=== PATIENT | female | born 1985 | race Caucasian/White ===

== ENCOUNTER 2022-08-25 11:45 | Outpatient (CLI) | payer OTHER, SELFPAY ==
[2022-08-25 16:42] LABS: Hepatitis B Surface Antigen* Negative (Negative)
[2022-08-25 16:51] LABS: HIV 1/2/P24 Combo Screen* Negative (Negative)
[2022-08-25 17:00] LABS: Hepatitis C Virus Antibody* Negative (Negative)
[2022-08-27 23:57] LABS: Rapid Plasma Reagin (RPR) Non Reactive (Non Reactive)
[2022-08-28 03:29] LABS: Varicella-Zoster Virus Ab, IgG 490.2 IV
[2022-08-28 03:32] LABS: Rubella Antibody IgG 11.8 IU/mL
== END 2022-08-25 11:46 | disposition home or self-care (01) ==
PROVIDERS: Visit Provider Advanced Practice Midwife
DX: Z34.81 Encounter for supervision of other normal pregnancy, first trimester (principal); Z3A.08 8 weeks gestation of pregnancy
CPT/HCPCS: 86592; 86703; 86762; 86787; 86803; 86850; 86900; 86901; 87086; 87340

== ENCOUNTER 2022-11-10 09:33 | Outpatient (CLI) | payer OTHER, SELFPAY ==
--- NOTE | 2022-11-10 09:45 | CRLHL7_ITS ---
For Patients: As a result of the Century Cures Act, medical imaging exams and procedure reports are released immediately into your electronic medical record. You may view this report before your referring provider. If you have questions, please contact your health care provider. INDICATION: Evaluate anatomy. COMPARISON: none TECHNIQUE: Real time reeves scale imaging of the fetus was performed as well as color Doppler analysis of the umbilical vessels. FINDINGS: Sonographic imaging demonstrates a single living intrauterine gestation. Fetus demonstrates a regular cardiac rate of 142 beats per minute. Fetus has a transverse position, head maternal left. The placenta lies posteriorly. On transvaginal imaging, the placental tip is located 1 cm from the internal cervical os. Amniotic fluid volume appears normal. Single deepest vertical pocket: 6.0 cm. The cervix is closed and measures 4.3 cm in length. The composite ultrasound gestational age is calculated at 21 weeks 2 days with an estimated sonographic due date of 03/21/2023. The estimated weight is 411 grams which lies at the greater than 97 %. The following biometric measurements were obtained: Biparietal diameter: 5.0 cm/21 weeks 0 days 86th% Head circumference: 18.7 cm/21 weeks 0 days 84th% Abdominal circumference: 16.5 cm/21 weeks 4 days 89th% Femur length: 3.5 cm/21 weeks 0 days 76th% The HC/AC ratio measures: 1.13 range (1.06-1.24) On anatomic survey, there is a normal appearance of the cerebral ventricles, cavum septi pellucidi, cisterna magna and cerebellum. The nose, lips, and facial profile appear normal. The cervical, thoracic and lumbar spine are well visualized and appear normal. There is a normal four-chamber heart view and the left and right ventricular outflow tracts appear normal. The diaphragm and stomach appear normal. The kidneys and bladder also appear normal. There is a normal three-vessel cord and cord insertion site. The four extremities appear normal. IMPRESSION: Sonographic gestational age 21 weeks 2 days and sonographic due date of 03/21/2023. Sonographic age is 9 days ahead of the clinical age. Estimated weight greater than 97th percentile. Abdominal circumference 89th percentile. Low lying posterior placenta with the placental edge 1 cm from the internal cervical os. Anatomic survey normal. Dictated by Chong Hernandez MD @ 11/10/2022 11:27:42 AM (Electronically Signed)
== END 2022-11-10 09:34 | disposition home or self-care (01) ==
LOC: US 09:35
PROVIDERS: PCP Family Medicine; Visit Provider Advanced Practice Midwife
DX: Z34.92 Encounter for supervision of normal pregnancy, unspecified, second trimester (principal); O44.42 Low lying placenta NOS or without hemorrhage, second trimester; Z3A.21 21 weeks gestation of pregnancy
CPT/HCPCS: 76805; 76817

== ENCOUNTER 2023-01-05 08:31 | Outpatient (CLI) | payer OTHER, SELFPAY | END 2023-01-05 08:32 | disposition home or self-care (01) | LOC: NFLDREF 01-07 02:10 | PROVIDERS: PCP Family Medicine; Referring Provider Family Medicine; Visit Provider Obstetrics & Gynecology | DX: O44.40 Low lying placenta NOS or without hemorrhage, unspecified trimester (principal) | CPT/HCPCS: 86592; 86850 ==

== ENCOUNTER 2023-01-05 08:35 | Outpatient (CLI) | payer OTHER, SELFPAY ==
--- NOTE | 2023-01-05 08:45 | CRLHL7_ITS ---
For Patients: As a result of the Century Cures Act, medical imaging exams and procedure reports are released immediately into your electronic medical record. You may view this report before your referring provider. If you have questions, please contact your health care provider. INDICATION: LOW-LYING PLACENTA COMPARISON: 11/10/2022 TECHNIQUE: Real time reeves scale imaging of the fetus was performed with transabdominal and transvaginal technique. FINDINGS: Sonographic imaging demonstrates a single living intrauterine gestation. Fetus demonstrates a regular cardiac rate of 146 beats per minute. Fetus has a vertex. The placenta lies posteriorly without evidence of placenta previa. The edge of the placenta is located 5.0 cm from the internal cervical os with transvaginal technique. The cervix is closed and measures 3.9 cm. Amniotic fluid volume appears normal and there is a single deepest vertical pocket: 6.9 cm. DICKSON 18.3 cm. IMPRESSION: Posterior placenta is located 5 cm from the internal cervical os with transvaginal imaging. Dictated by Chong Hernandez MD @ 01/05/2023 11:15:38 AM (Electronically Signed)
== END 2023-01-05 08:36 | disposition home or self-care (01) ==
PROVIDERS: PCP Family Medicine; Visit Provider Advanced Practice Midwife
DX: O44.42 Low lying placenta NOS or without hemorrhage, second trimester (principal); O09.529 Supervision of elderly multigravida, unspecified trimester
CPT/HCPCS: 76816; 76817

== ENCOUNTER 2023-01-12 08:02 | Outpatient (CLI) | payer OTHER, SELFPAY | END 2023-01-12 08:03 | disposition home or self-care (01) | LOC: NFLDREF 01-14 04:09 | PROVIDERS: PCP Family Medicine; Referring Provider Family Medicine; Visit Provider Obstetrics & Gynecology | DX: R73.09 Other abnormal glucose (principal) | CPT/HCPCS: 82951; 82952 ==

== ENCOUNTER 2023-02-02 09:44 | Outpatient (CLI) | payer OTHER, SELFPAY ==
--- NOTE | 2023-02-02 09:45 | CRLHL7_ITS ---
For Patients: As a result of the Century Cures Act, medical imaging exams and procedure reports are released immediately into your electronic medical record. You may view this report before your referring provider. If you have questions, please contact your health care provider. INDICATION: Gestational diabetes TECHNIQUE: Real time reeves scale imaging of the fetus was performed. COMPARISON: 01/05/2023, 11/10/2022 FINDINGS: Sonographic imaging demonstrates a single living intrauterine gestation. Fetus demonstrates a regular cardiac rate of 157 beats per minute. Fetus has a vertex position. The placenta lies posteriorly. Amniotic fluid volume appears normal and there is a single deepest pocket of 5.4 cm. The estimated weight is 2265gm which lies at the 90th %. On the prior OB ultrasound dated 11/10/2022 the estimated weight was at the greater than 97th percentile. BPD 88th percentile. HC 75th percentile. AC 96th percentile. FL 52nd percentile. The fetus was active and demonstrated normal breathing movements. There was normal flexion and extension of the trunk and extremities. IMPRESSION: Normal biophysical profile score 8/8. Sonographic gestational age 33 weeks 5 days and sonographic due date of 03/18/2023. Sonographic age 12 days ahead of the clinical age. Estimated weight 90th percentile. Abdominal circumference 86th percentile. Dictated by Chong Hernandez MD @ 02/03/2023 8:48:27 AM (Electronically Signed)
== END 2023-02-02 09:45 | disposition home or self-care (01) ==
LOC: US 09:44
PROVIDERS: PCP Family Medicine; Visit Provider Obstetrics & Gynecology
DX: O24.419 Gestational diabetes mellitus in pregnancy, unspecified control (principal)
CPT/HCPCS: 76816; 76819

== ENCOUNTER 2023-02-09 07:15 | Outpatient (CLI) | payer OTHER, SELFPAY ==
--- NOTE | 2023-02-09 07:15 | CRLHL7_ITS ---
For Patients: As a result of the Century Cures Act, medical imaging exams and procedure reports are released immediately into your electronic medical record. You may view this report before your referring provider. If you have questions, please contact your health care provider. INDICATION: Gestational diabetes COMPARISON: 02/02/2023 TECHNIQUE: Real time reeves scale imaging of the fetus was performed. Without non-stress testing. FINDINGS: Sonographic imaging demonstrates a single living intrauterine gestation. Fetus demonstrates a regular cardiac rate of 137 beats per minute. Fetus has a vertex position. The amniotic fluid volume appears normal and there is a single deepest pocket measurement of 6.1 cm. The fetus was active. Absent breathing movements for 30 seconds. There was normal flexion and extension of the trunk and extremities. IMPRESSION: Biophysical profile 03/31. Dictated by Chong Hernandez MD @ 02/09/2023 12:56:56 PM (Electronically Signed)
== END 2023-02-09 07:16 | disposition home or self-care (01) ==
LOC: US 07:16
PROVIDERS: PCP Family Medicine; Visit Provider Obstetrics & Gynecology
DX: O24.419 Gestational diabetes mellitus in pregnancy, unspecified control (principal)
CPT/HCPCS: 76819

== ENCOUNTER 2023-02-16 09:37 | Outpatient (CLI) | payer OTHER, SELFPAY ==
--- NOTE | 2023-02-16 09:45 | CRLHL7_ITS ---
For Patients: As a result of the Century Cures Act, medical imaging exams and procedure reports are released immediately into your electronic medical record. You may view this report before your referring provider. If you have questions, please contact your health care provider. INDICATION: Gestational diabetes. Assess well-being. TECHNIQUE: Obstetrical ultrasound. COMPARISON: February 09, 2023. February 02, 2023. FINDINGS: Single living intrauterine in vertex presentation. Posterior and left-sided placenta. heart rate 141 beats per minute. Normal amniotic fluid. Single deepest pocket measurement 7.1 cm. Biophysical profile score 8/8 with 2 points given each for breathing, movement, tone, and amniotic fluid. When compared to February 09, 2023 the biophysical profile score was 6/8. When compared to February 02, 2023 the biophysical profile score is 8/8. IMPRESSION: Single living intrauterine in vertex presentation. Posterior and left-sided placenta. Biophysical profile score 8/8. Dictated by Marlo Richardson MD @ 02/16/2023 4:13:37 PM (Electronically Signed)
== END 2023-02-16 09:38 | disposition home or self-care (01) ==
LOC: US 09:37
PROVIDERS: PCP Family Medicine; Visit Provider Obstetrics & Gynecology
DX: O24.419 Gestational diabetes mellitus in pregnancy, unspecified control (principal)
CPT/HCPCS: 76819

== ENCOUNTER 2023-02-23 08:43 | Outpatient (CLI) | payer OTHER, SELFPAY ==
--- NOTE | 2023-02-23 08:45 | CRLHL7_ITS ---
For Patients: As a result of the Century Cures Act, medical imaging exams and procedure reports are released immediately into your electronic medical record. You may view this report before your referring provider. If you have questions, please contact your health care provider. INDICATION: Gestational diabetes COMPARISON: 02/16/2023 TECHNIQUE: Real time reeves scale imaging of the fetus was performed. Without non-stress testing. FINDINGS: Sonographic imaging demonstrates a single living intrauterine gestation. Fetus demonstrates a regular cardiac rate of 139 beats per minute. Fetus has a vertex position. The amniotic fluid volume appears normal and there is a single deepest pocket measurement of 4.5 cm. The fetus was active and demonstrated normal breathing movements. There was normal flexion and extension of the trunk and extremities. IMPRESSION: Normal biophysical profile score of 8 out of 8. Dictated by Chong Hernandez MD @ 02/23/2023 9:57:07 AM (Electronically Signed)
== END 2023-02-23 08:44 | disposition home or self-care (01) ==
LOC: US 08:43
PROVIDERS: PCP Family Medicine; Visit Provider Obstetrics & Gynecology
DX: O24.419 Gestational diabetes mellitus in pregnancy, unspecified control (principal)
CPT/HCPCS: 76819

== ENCOUNTER 2023-03-24 05:29 | Inpatient (IN) | payer OTHER, SELFPAY ==
[2023-03-24] VITALS (34 sets, daily range): BP systolic 93–129; BP diastolic 53–83; PULSE 62–84; RESP 16–18; TEMP 36.4–36.9; O2SAT 94–99; BMI 37.8
--- NOTE | 2023-03-24 07:24 | W.PM.LDBA ---
Subjective History of Present Illness Time Seen by Provider: 07:24 Date Seen: 03/24/23 Narrative: Patient is being admitted to Labor and Delivery for schedule repeat CD. She is a 37 year old at 39w1d gestation. Her full history and physical was dictated myself on 03/09. Please see this for details. Active movement. Some contractions. No LOF, vaginal bleeding or abnormal vaginal discharge. OB - Problem Based A/P Additional Plan (1) AMA (advanced maternal age) multigravida 35+: Status: Acute (2) Obesity affecting : Status: Acute (3) Anxiety and depression: Status: Acute (4) Encounter for supervision of other normal , third trimester: Status: Acute (5) Gestational diabetes: Status: Acute Plan - Will proceed with planned repeat delivery and bilateral salpingectomy OB Exam Physical Exam Vital signs: Temp Pulse BP 98.5 F 74 124/66 03/24/23 06:13 03/24/23 06:10 03/24/23 06:10 Narrative: Physical exam: General: No acute distress Psych: Alert and oriented x3, full affect HEENT: Normocephalic, atraumatic Lungs: Unlabored breathing Neuro: No focal deficit. Mentating appropriately Abdomen: Gravid uterus. No tenderness, guarding or rebound Pelvic exam: Deferred
--- NOTE | 2023-03-24 08:14 | W.ANESCHARGE ---
Anesthesia Charges Start Date/Time Anesthesia Start Date: 03/24/23 Anesthesia Start Time: 07:19 Stop Date/Time Anesthesia Stop Date: 03/24/23 Anesthesia Stop Time: 08:57
--- NOTE | 2023-03-24 08:36 | PM.OBPRCCS ---
Procedure Pre-op/Post-op diagnoses: Pre-Op/Post-Op Diagnoses Operation Date: 03/24/23 07:15 <No data on this case meets the specified criteria> Procedure Done: Global Procedure Details: Procedures Operation Date: 03/24/23 07:15 Actual Procedure Side Surgeon p Repeat Section, Tubal Ligation Evette Denson MD Narrative: DELIVERY BY SECTION Date of Service: 03/24/2023 Delivery time: 0756 Summary: Admitted for scheduled repeat delivery and bilateral salpingectomy at 39 weeks 1 day, repeat lower uterine transverse section, Pfannenstiel, Closed with sutures, QBL 537 cc, No complications, Findings: Filmy adhesions of omentum to anterior abdominal wall. Bladder adhesions high on uterus, normal bilateral ovaries and tubes 9,9 Weight 3572 g. Primary Indication: 1. Repeat delivery 2. Gestation diabetes mellitus A2 3. Undesired fertility Procedures: Repeat lower uterine transverse section Bilateral salpingectomy Specimens Removed: Placenta Bilateral fallopian tubes Surgeon: Evette Denson MD Anesthesia: Spinal Report: Prophylactic antibiotic, 2 g of Ancef was given before patient was taken to OR. After arrival to the operating room patient was placed in the supine position with left lateral tilt after administration of spinal anesthesia. Laparotomy A pfannenstiel incision was made through the anterior abdominal wall with #10 scalpel approximately 2 cm above the pubic symphysis. The incision was extended sharply with the #10 scalpel through the subcutaneous tissue to the level of fascia. The fascia was entered sharply with a #10 scalpel (Pfannenstiel) in the midline and extended in semi-elliptical fashion with Hood scissor. The underlying muscles were dissected off the overlying fascia by grasping the superior aspect of fascia with two talya clamps and blunt dissection was used along the midline. The fascia was further from rectus muscle with Hood scissor and/or cautery. In similar fashion, the lower aspect of fascia was also grasped with two Talya clamps and both blunt and sharp dissection was used to separate fascia from rectus muscle. The rectus muscles were in the midline bluntly with digits. The peritoneum was then entered sharply with Shayy and Metzenbaum is a. The peritoneal incision was then extended superiorly and inferiorly under direct visualization with care being taken to avoid bladder and bowel. Adhesion noted as above. The peritoneal incision was enlarged bluntly by lateral traction from the surgeon's and front office assistant's hand. Cory retractor was inserted into the abdomen. Delivery Lysis of adhesion of bladder of the lower uterine segment was performed and a bladder flap was developed by grasping with Scottish forcep and enter with Metzenbaun scissor. Then sharp and blunt dissection with Metzenbaum scissor and fingers were performed. A low transverse hysterotomy was made then with #10 scalpel and extended laterally and cephalad with fingers in a low transverse fashion with Manu Kohler technique with care being taken to avoid injury to the fetus. The amniotic cavity (membrane) was then entered with spontaneous rupture of membrane, and the amniotic fluid was noted to be clear, fetus was delivered cephalic. With delivery of the baby, no extension was noted. Placenta was delivered spontaneously with steady traction on cord and manual separation of placenta from uterine wall. Closure Uterine cavity was cleaned after placental delivery with lap sponge x 2. The hysterotomy was closed in one layer with stitches using 0 vicryl with continuous locking stitches. Hemostasis was achieved as needed with electrocautery. The ovaries/tubes/uterine surface were evaluated. Findings were noted as above. Attention was then turned to performing the bilateral salpingectomy. The right fallopian tube was grasped with two Babcocks and used for elevation and traction. Ligasure was used to perform the salpingectomy starting at the fimbria all the way to the isthmus where it was transected near the cornua. This was repeated for the left fallopian tube. Cory retractor removed and hemostasis was confirmed again. Fascia was closed with running stitches using 0 PDS. Hemostasis was checked for and found to be adequate. The subcutaneous layer was closed with running plain gut sutures. The skin was closed with monocryl subcuticular sutures. The incision was cleaned and covered with a Exofin and Mepilex dressing and the procedure considered terminate at this time. Intraoperative Complications: None QBL: 537 cc Uterotonics: 40 units of Pitocin Disposition: The patient tolerated the procedure well. She was recovered in obstetric PACU for close monitoring in stable condition, with a contracted uterus and normal transvaginal bleeding. The infant was sent to mother?s bedside/PACU. A segment of the cord was obtained for umbilical cord gases. Fallopian tube was sent to the pathology. The placenta was not sent to pathology.
--- NOTE | 2023-03-24 08:58 | W.PM.NB ---
Nerve Block Nerve Block Time Seen by Provider: 08:47 Date Seen: 03/24/23 Type of block requested by surgeon for post-operative analgesia: TAP Side: bilateral Time out performed: Yes Verification of patient name: Yes Verification of date of : Yes Site marking: site marked Name of person performing procedure: Lc Continuous monitoring Was continuous monitoring of O2 sat, B/P, quality assurance monitor, recorded every 15 minutes?: Yes Procedure Checklist: sterile prep, needles and gloves Ultrasound guided. Images saved: Yes Medications given in 5ml increments after negative aspiration: Marcaine %: 0.25 mL: 30 Needle gauge: 20 and Exparel mL: 10 Patient tolerated procedure well: Yes Additional comments: Needle noted adjacent to nerve Block Charges Block Charge (with Pro Fee): TAP Bilateral Use of Ultrasound Machine for Block: Yes- US Guidance/pain block
--- NOTE | 2023-03-24 09:09 | W.ANESCHARGE ---
Anesthesia Charges Start Date/Time Anesthesia Start Date: 03/24/23 Anesthesia Start Time: 07:19 Stop Date/Time Anesthesia Stop Date: 03/24/23 Anesthesia Stop Time: 08:57
[2023-03-24] MEDS: KETOROLAC 30 MG/ML inj IVP ×3 (09:10→21:11)
[2023-03-24] MEDS: LACTATED RINGERS 1000 ML 1,000 ML 125 ML IV (10:56)
[2023-03-24] MEDS: ENOXAPARIN 40 MG/0.4 ML INJ SUBCUT (19:44)
[2023-03-25] VITALS (11 sets, daily range): BP systolic 116–134; BP diastolic 71–76; PULSE 62–70; RESP 16; TEMP 36.5–36.8; O2SAT 96–100
[2023-03-25] MEDS: SODIUM CHLORIDE 0.9 % (FLUSH) 10 ML SYRINGE IVF (03:03)
[2023-03-25] MEDS: KETOROLAC 30 MG/ML inj IVP ×3 (03:03→15:06)
[2023-03-25 06:52] LABS: Hemoglobin* 11.3 gm/dL (12.0-16.0)
--- NOTE | 2023-03-25 07:05 | PM.OBPNCS1 ---
OB - PN: A/P Assessment and Plan (1) AMA (advanced maternal age) multigravida 35+: Status: Acute (2) Obesity affecting : Status: Acute (3) Anxiety and depression: Status: Acute (4) Encounter for supervision of other normal , third trimester: Status: Acute (5) Gestational diabetes: Status: Acute Plan Plan: routine postop care Comments: Assessment/Plan G 2 P 2 status post uncomplicated repeat w/ tubal ligation. 1. ?Continue route PP cares 2. ?. ?May see if desired 3. ?Anticipate discharge home tomorrow or the following day per pt preference 4. Gestational diabetes. BS WNL this AM. 5. Anxiety & Depression OB - PN: Subj Subjective Time Seen by Provider: 07:06 Date Seen: 03/25/23 Interval history: Nevaeh is a 37 y.o. who was admitted to [facility] for a repeat . ?She had an uncomplicated w/ a tubal. ? Narrative: The patient feels well. ?The pain is well controlled with current medications. ?She has no new complaints. ?She is breast feeding and reports things are going well.? the patient has done well.? Vitals have been stable.? She has remained afebrile.? Has a good appetite, is tolerating a general diet. ?She is voiding without difficulty now, did have to be straight cathed last night after removal of her catheter.? She is passing gas and has had a bowel movement.? She is ambulating and denies any dizziness.? Has Small amount of rubra lochia. OB - PN: Obj Exam Physical Exam: Vital signs: Temp Pulse Resp BP Pulse Ox O2 Del Method 98.2 F 62 16 116/71 96 Room Air 03/25/23 03:43 03/25/23 03:43 03/25/23 06:07 03/25/23 03:43 03/25/23 03:43 03/25/23 03:43 Narrative: VSS. Afebrile GENERAL APPEARANCE: ?normal affect, alert, no distress MOOD: ?appropriate HEENT: normocephalic, neck supple, full ROM CHEST: ?Symmetrical chest wall movement. ?Normal respiratory effort. ?Clear to auscultation HEART: ?regular rate and rhythm ABDOMEN: ?soft, non-tender. Uterine fundus is firm, at Umbilicus, Midline and is appropriate for the stage of recovery. ?Bowel sounds present. EXTREMITIES: ?normal and +1 edema SKIN: warm, dry. Dressing on, clean/dry/intact. No signs of infection noted. OB - PN: Obj Data Labs Labs: Laboratory Results - last 24 hr 03/24/23 03/25/23 06:00 06:28 Hgb 11.3 L Blood Type O Positive Antibody Screen NEGATIVE
[2023-03-25] MEDS: DOCUSATE SODIUM 100 MG CAPSULE PO (08:48)
[2023-03-25] MEDS: ACETAMINOPHEN 500 MG TABLET 1000 MG PO (17:42)
[2023-03-25] MEDS: IBUPROFEN 600 MG TABLET PO (20:52)
[2023-03-26] MEDS: ACETAMINOPHEN 500 MG TABLET 1000 MG PO ×2 (00:15→06:19)
[2023-03-26 00:22] VITALS: BP 127/76; PULSE 68; RESP 16; TEMP 36.7; O2SAT 97
[2023-03-26] MEDS: IBUPROFEN 600 MG TABLET PO ×2 (03:00→09:40)
[2023-03-26] MEDS: OXYCODONE 5 MG TABLET PO (09:40)
[2023-03-26] MEDS: DOCUSATE SODIUM 100 MG CAPSULE PO (09:40)
[2023-03-26 09:43] VITALS: BP 126/71; PULSE 77; RESP 16; TEMP 36.7; O2SAT 98
--- NOTE | 2023-03-26 09:57 | PM.OBDSCS1 ---
DS: Providers Provider Time Seen by Provider: 09:58 Date Seen: 03/26/23 Date of admission: 03/24/23 05:29 Primary care physician: Kristen Dave MD Admitting Clinician: Evette Denson MD Attending Physician on discharge: Evette Dneson MD DS: Diagnosis Discharge Diagnosis (1) Gestational diabetes: Status: Acute Problem details: 1. Blood sugars have been normal since delivery 2. Required insulin (2) Status post repeat low transverse section: Status: Acute Problem details: Male, Cosmo, 39w1d. 1. Uncomplicated course. 2. Discharge home on 03/26/2023. Exam Narrative: Exam Narrative: GENERAL APPEARANCE: Pleasant, , well-groomed woman in no acute distress. VITAL SIGNS: as noted in nursing notes LUNGS: Clear to auscultation bilaterally without wheezes, rales or rhonchi. HEART: Regular rate and rhythm with normal S1 and S2. No gallop, rub or murmur. ABDOMEN: Fundus firm at 1 cm below the umbilicus in the midline Soft, nontender, nondistended, with normal bowels sounds throughout. INCISION: Clean, dry and intact. A small amount of dry blood on the patient's pajamas. No evidence of active bleeding, purulent drainage or skin separation. EXTREMITIES: No cyanosis, clubbing, or edema. No varicosities. NEUROLOGIC: Normal gait and balance. Normal deep tendon reflexes at bilateral patella 2+/2, equal without clonus. PSYCHIATRIC: alert and oriented x3. Normal speech pattern, eye contact and affect. SKIN: Warm, dry, and well perfused. Good turgor. No lesions, nodules or rashes. Const: Vital Signs, click to edit/add: Vital Signs - 24 hr 03/25/23 17:11 03/26/23 00:22 03/26/23 09:43 Temperature 98.1 F 98.1 F 98.0 F Pulse Rate [Pulse Oximeter] 68 68 77 Respiratory Rate 16 16 16 Blood Pressure [Le ft Arm] 129/75 127/76 126/71 Pulse Oximetry 97 97 98 Oxygen Delivery Me thod Room Air Room Air Room Air OB - DS: Summary Hospital Course Hospital Course: Nevaeh is a 37 year old G 2 P 1001 now 2 at 39 and 1/7 weeks gestation that was admitted to the Center on 03/24/23 for scheduled repeat low-transverse and bilateral salpingectomy. She had an uncomplicated delivery. She delivered a viable male . She is breast feeding. the patient has done well. She is tolerating a regular diet, ambulating without difficulty and passing flatus. She is without problems. She would like to be discharged home today. Peripartum Data Procedures: Procedures Operation Date: 03/24/23 07:15 Actual Procedure Side Surgeon p Repeat Section, Tubal Ligation Evettejuliette Denson MD complications: none [place] Gender: Male Time Spent with Patient Time attestation: Total time spent providing and/or coordinating discharge services: Discharge Plan Discharge Disposition: Home, Self-Care Date of Admission: 03/24/23 05:29 Attending Provider on Discharge: Alyssa Koenig Primary Care Provider: Kristen Dave Condition: Improved Anticipated Discharge Date/Time: 03/26/23 13:00 Discharge Medications: New docusate sodium 100 mg Capsule 100 mg PO BID PRNQty: 100 0RF ibuprofen 600 mg Tablet 600 mg PO Q6H PRN (Reason: Pain) Qty: 30 0RF oxycodone 5 mg Tablet 5 mg PO 3XD PRN (Reason: Pain) Qty: 21 0RF Continued prenat.vits,lidia,mkg-[id number] Tablet 1 tab PO QDAY escitalopram oxalate [Lexapro] 10 mg tablet 10 mg PO QDAY Discontinued Novolin N FlexPen 100 unit/mL (3 mL) insulin pen 15 unit subcut QHS aspirin 81 mg tablet,chewable 81 mg PO QDAY No Action (DME) Test Strips Misc See Rx Instructions .MEDSUPPLY Qty: 100 3RF Rx Instructions: Test blood sugar 4 times daily. (DME) lancets Misc See Rx Instructions .MEDSUPPLY Qty: 100 3RF Rx Instructions: Test blood sugar 4 times daily. (DME) Blood Glucose Meter Misc See Rx Instructions .MEDSUPPLY Qty: 1 0RF Rx Instructions: As directed Discharge Orders: Discharge Order (Routine); Ordered 03/26/23 Ordered By: Alyssa Koenig Patient Education: OB Over the Counter Medication Information, OB /Breast Feeding Additional Instructions: ACTIVITY RESTRICTIONS: Nothing vaginally for 6 weeks: no tampons/intercourse No driving while taking narcotic pain medication during the day. 1-2 weeks. Okay to be the passenger anytime. Lifting restriction: Maximum of 20 pounds for 6 weeks. High impact or core exercises: 6 weeks. Submerge the incision in water (bath/pool/diego): 2 weeks. Off of work/school for a minimum of 8 weeks NO RESTRICTIONS for: Walking Going up/down stairs Showering Symptoms to report to doctor: -Bleeding that saturates more than one pad per hour ?-Passing clots larger than the size of a golf ball ?-Pain not relieved by prescribed medication ?-Fever above 100.4 degrees Fahrenheit ?-A foul vaginal odor ?-Difficulty in emotions, mood and functions ?-Thoughts of hurting yourself and/or ?-Painful, reddened area in your breast ?-Any drainage, redness or tenderness in your IV/epidural site ?-Severe headache that doesn't improve after taking medications ?-Changes in vision, including temporary loss of vision, blurred vision, and/or light sensitivity ?-Upper abdominal pain (usually under ribs on the right side) ?-Decrease in urination or painful, frequent urinating ?-Chest pain ?-Shortness of breath ?-Tenderness or pain with redness and/swelling in the calf(s) of your leg Follow-up appointments: 1. [facility] weeks: incision check, screen for anxiety and depression. 2. A 6 week visit for an annual physical exam. consultation services are available to all mothers and babies for the first year after delivery.? To make an appointment, please call [phone]. Activity Level: Other Discharge Diet: Regular Follow Up Appointments: Kristen Dave MD [Primary Care Provider] - [facility] [Provider Group] Evette Denson MD [Staff Physician] - Forms: [employer] Info Instructions
== END 2023-03-26 11:49 | disposition home or self-care (01) | DRG 785 ==
PROVIDERS: Admitting Provider Obstetrics & Gynecology; PCP Family Medicine; Visit Provider Obstetrics & Gynecology
PROC: 10D00Z1 Extraction of Products of Conception, Low, Open Approach (ICD-10-PCS; CPT 59514; principal; 2023-03-24 07:15)
DX: O34.211 Maternal care for low transverse scar from previous cesarean delivery (principal); O24.424 Gestational diabetes mellitus in childbirth, insulin controlled; O99.214 Obesity complicating childbirth; E66.9 Obesity, unspecified; O99.344 Other mental disorders complicating childbirth; F41.9 Anxiety disorder, unspecified; F32.A Depression, unspecified; Z30.2 Encounter for sterilization; Z37.0 Single live birth; Z3A.39 39 weeks gestation of pregnancy; G89.18 Other acute postprocedural pain
CPT/HCPCS: 01961; 36415; 51798; 64488; 76942; 85018; 86850; 86900; 86901; 88302; 99211; A9270; C9290; J1100; J1650; J1885; J2274; J2370; J2405; J2590; J3490; J7120

== ENCOUNTER 2023-06-01 08:38 | Outpatient (CLI) | payer OTHER, SELFPAY | END 2023-06-01 08:39 | disposition home or self-care (01) | LOC: NFLDREF 06-02 12:28 | PROVIDERS: PCP Family Medicine; Referring Provider Family Medicine; Visit Provider Registered Nurse | DX: O24.419 Gestational diabetes mellitus in pregnancy, unspecified control (principal) | CPT/HCPCS: 82947; 82950 ==

== ENCOUNTER 2023-10-11 08:14 | Outpatient (CLI) | payer OTHER, SELFPAY | END 2023-10-11 08:15 | disposition home or self-care (01) | LOC: NFLDREF 10-13 12:51 | PROVIDERS: PCP Family Medicine; Referring Provider Family Medicine; Visit Provider Registered Nurse | DX: Z13.220 Encounter for screening for lipoid disorders (principal) | CPT/HCPCS: 80061 ==

== ENCOUNTER 2024-06-26 14:18 | Outpatient (CLI) | payer OTHER, SELFPAY | END 2024-06-26 14:19 | disposition home or self-care (01) | LOC: NFLDREF 14:19 | PROVIDERS: PCP Family Medicine; Visit Provider Registered Nurse | DX: R63.5 Abnormal weight gain (principal); Z13.29 Encounter for screening for other suspected endocrine disorder | CPT/HCPCS: 84443 ==